=== PATIENT | female | born 1995 | race Caucasian/White ===

== ENCOUNTER 2017-01-21 17:29 | Emergency (ER) | payer BC ==
[~2017-01-21] VITALS: Ht 172.7 cm; Wt 72.6 kg
[2017-01-21 17:53] VITALS: BP_SYST 122
[2017-01-21] MEDS ORDERED: IBUPROFEN 800 MG TABLET PO ONE (19:45)
[2017-01-21 20:30] LABS: BILIRUBIN,URINE NEGATIVE (NEGATIVE); BLOOD, URINE NEGATIVE (NEGATIVE); CLARITY/URINE CLOUDY (CLEAR); COLOR,URINE YELLOW (YELLOW); GLUCOSE,URINE NEGATIVE (NEGATIVE); KETONES,URINE NEGATIVE (NEGATIVE); LEUKOCYTE ESTERASE ,URINE 1+ (NEGATIVE); NITRITE, URINE NEGATIVE (NEGATIVE); PH,URINE 6.5 (5.0-8.0); PROTEIN URINE NEGATIVE (NEGATIVE); UROBILINOGEN,URINE 0.2 (0.2-1.0)
[2017-01-21 20:49] LABS: BACTERIA,URINE MODERATE /HPF (None Seen); RBC,URINE NONE SEEN /HPF (0-3); URINE AMORPHOUS URATE 4+ /HPF (None Seen)
[2017-01-21 20:54] VITALS: BP_SYST 122
== END 2017-01-21 20:54 | disposition home or self-care (01) ==
LOC: SED 17:29
DX: N39.0 Urinary tract infection, site not specified (principal); F20.9 Schizophrenia, unspecified; F17.210 Nicotine dependence, cigarettes, uncomplicated; Z88.1 Allergy status to other antibiotic agents; Z71.6 Tobacco abuse counseling
CPT/HCPCS: 71010; 81000-TC; 81025; 87086; 93005; 99285

== ENCOUNTER 2018-03-02 17:37 | Emergency (ER) | payer BC ==
[~2018-03-02] VITALS: Ht 172.7 cm; Wt 90.7 kg
[2018-03-02 18:00] VITALS: BP_SYST 127
[2018-03-02] MEDS ORDERED: HYDROcodone/ACETAMIN 5-325 MG TAB (NORCO/ VICODIN) PO ONE (18:15)
[2018-03-02] MEDS ORDERED: DIPHENHYDRAMINE INJ 50 MG/ML VIAL IM ONE (18:15)
[2018-03-02] MEDS ORDERED: CLINDAMYCIN PHOSPHATE 300 MG/2 ML VIAL IM ONE (18:15)
[2018-03-02 18:50] VITALS: BP_SYST 120
== END 2018-03-02 18:50 | disposition home or self-care (01) ==
LOC: SED 17:37
DX: L01.00 Impetigo, unspecified (principal); F17.210 Nicotine dependence, cigarettes, uncomplicated; R03.0 Elevated blood-pressure reading, without diagnosis of hypertension; F20.9 Schizophrenia, unspecified; Z88.1 Allergy status to other antibiotic agents
CPT/HCPCS: 81025; 96372; 99284; J1200; J3490

== ENCOUNTER 2019-01-03 11:40 | Emergency (ER) | payer BC ==
[~2019-01-03] VITALS: Ht 172.7 cm; Wt 90.7 kg
--- NOTE | 2019-01-03 11:50 | NUR ---
Patient to ER bed 2 to gown for evaluation. Side rails up. Report given to Gustavo SHAFFER.
--- NOTE | 2019-01-03 11:55 | NUR ---
PT is accompanied by her girlfriend at bedside. PT advised that she had a seizure yesterday that lasted 2-3 mins. PT is [id number] and is not presenting any signs of acute distress. Rails padded and bed placed at lowest position.
--- NOTE | 2019-01-03 12:00 | NUR ---
ER at bedside examining patient.
[2019-01-03] MEDS ORDERED: NACL 0.9% 1,000 ML IV ONE (12:05)
[2019-01-03] MEDS ORDERED: TOPIRAMATE 25 MG TABLET(TOPAMAX) PO ONE (12:15)
[2019-01-03] MEDS ORDERED: NS 1000 ML IV.SOLN IV ONE (12:15)
[2019-01-03 12:36] LABS: BILIRUBIN,URINE NEGATIVE (NEGATIVE); BLOOD, URINE NEGATIVE (NEGATIVE); CLARITY/URINE CLEAR (CLEAR); COLOR,URINE YELLOW (YELLOW); GLUCOSE,URINE NEGATIVE (NEGATIVE); KETONES,URINE NEGATIVE (NEGATIVE); LEUKOCYTE ESTERASE ,URINE TRACE (NEGATIVE); NITRITE, URINE NEGATIVE (NEGATIVE); PROTEIN URINE NEGATIVE (NEGATIVE)
--- NOTE | 2019-01-03 12:45 | NUR ---
Patient transported to radiology via gurney, accompanied by rad staff and RN.
[2019-01-03 12:54] LABS: BASOPHILS % (AUTO) 0.4 % (0.0-2.0); EOSINOPHILS # (AUTO) 0.2 K/uL (0.0-0.4); EOSINOPHILS % (AUTO) 1.8 % (0.0-4.0); HEMOGLOBIN 14.8 g/dL (12.0-16.0); LYMPHOCYTES # (AUTO) 1.9 K/uL (1.0-5.5); LYMPHOCYTES % (AUTO) 16.3 % (20.5-51.5); MEAN CORPUSCULAR HEMOGLOBIN 30 pg (27-31); MEAN CORPUSCULAR HGB CONC 34 % (32-36); MEAN CORPUSCULAR VOLUME 89 fL (79.0-98.0); MONOCYTES # (AUTO) 0.8 K/uL (0.0-1.0); MONOCYTES % (AUTO) 7.3 % (1.7-9.3); NEUTROPHILS # (AUTO) 8.6 K/uL (1.8-7.7); NEUTROPHILS % (AUTO) 74.2 % (40.0-70.0); PLATELET COUNT (AUTO) 330 K/uL (130-430); RED BLOOD CELL COUNT(AUTO) 4.93 MIL/uL (4.2-6.2); RED CELL DISTRIBUTION WIDTH 13.3 % (9.0-15.0); WHITE BLOOD COUNT (AUTO) 11.5 K/uL (4.8-10.8)
[2019-01-03 12:54] LABS: BARBITURATE, URINE NEGATIVE (NEG <=200); BENZODIAZEPINE, URINE NEGATIVE (NEG <=150); CANNABINOID, URINE NEGATIVE (NEG <=50); COCAINE, URINE NEGATIVE (NEG <=150); METHAMPHETAMINES SCREEN,URINE NEGATIVE (NEG <=500); OPIATE, URINE NEGATIVE (NEG <=100); PHENCYCLIDINE SCREEN,URINE NEGATIVE (NEG <=25); UR TRICYCLIC ANTIDEPRESSANTS NEGATIVE (NEG <=300); URINE AMPHETAMINE NEGATIVE (NEG <=500); URINE METHADONE NEGATIVE (NEG <=200); URINE OXYCODONE SCREEN NEGATIVE (NEG <=100); URINE PROPOXYPHENE SCREEN NEGATIVE (NEG <=300)
[2019-01-03 13:10] LABS: BACTERIA,URINE FEW /HPF (None Seen); RBC,URINE 0-3 /HPF (0-3); WBC,URINE 0-3 /HPF (0-3)
[2019-01-03 13:11] LABS: MUCUS,URINE 1+ /LPF (None Seen); URINE AMORPHOUS PHOSPHATES 2+ /HPF (None Seen)
--- NOTE | 2019-01-03 13:30 | NUR ---
Pt on gurcady with girlfriend at bedside. PT advised she is doing okay. PT not presenting any signs of acute distress.
[2019-01-03 13:41] LABS: PROTHROMBIN TIME 9.9 SECS (9.5-12.5)
[2019-01-03 13:56] LABS: ANION GAP 7 (5-15); CALCIUM 8.9 mg/dL (8.4-11.0); CHLORIDE 107 mmol/L (98-107); CREATININE 0.75 mg/dL (0.55-1.30); GLUCOSE 107 mg/dL (70-99); POTASSIUM 3.8 mmol/L (3.5-5.1); SODIUM SERUM 137 mmol/L (136-145); UREA NITROGEN, BLOOD 10 mg/dL (8-21)
[2019-01-03 13:59] LABS: GFR AFRICAN AMERICAN 124 mL/min (>90)
[2019-01-03 14:04] LABS: ALANINE AMINOTRANSFERASE 22 U/L (12-78); ALBUMIN 3.5 g/dL (3.4-4.8); AMYLASE 47 U/L (0-100); ASPARTATE AMINOTRANSFERASE 15 U/L (10-37); LIPASE 88 U/L (73-393); TOTAL BILIRUBIN 0.3 mg/dL (0.0-1.0)
[2019-01-03 14:05] LABS: ALCOHOL, BLOOD < 3 mg/dL (<10)
[2019-01-03 14:33] VITALS: BP_SYST 107
== END 2019-01-03 13:30 | disposition home or self-care (01) ==
LOC: SED 11:40
DX: R56.9 Unspecified convulsions (principal); F20.9 Schizophrenia, unspecified; Z88.1 Allergy status to other antibiotic agents; Z86.59 Personal history of other mental and behavioral disorders
CPT/HCPCS: 36415; 70450; 71045; 80053; 80307; 81000; 82150; 83605; 83690; 85025; 85610; 85730; 87040; 99284; G0482; J7030

== ENCOUNTER 2023-12-15 11:25 | Emergency (ER) | payer BC, OTHER ==
[~2023-12-15] VITALS: Ht 172.7 cm; Wt 111.1 kg
[2023-12-15 11:43] VITALS: BP_SYST 114; PULSE 73; RESP 18; TEMP 97.4; O2SAT 97
[2023-12-15] MEDS ORDERED: CLOT45CR33 TP (12:08)
[2023-12-15 12:16] VITALS: BP_SYST 114; PULSE 73; RESP 18; TEMP 97.4; O2SAT 97
== END 2023-12-15 12:15 | disposition home or self-care (01) ==
LOC: SED 11:25
DX: B35.4 Tinea corporis (principal); R21 Rash and other nonspecific skin eruption; Z88.1 Allergy status to other antibiotic agents; Z79.899 Other long term (current) drug therapy
CPT/HCPCS: 99282

== ENCOUNTER 2024-01-24 16:44 | Emergency (ER) | payer OTHER ==
[~2024-01-24] VITALS: Ht 172.7 cm; Wt 102.1 kg
[~2024-01-24 16:44] MED LIST: CLOT45CR33 TP
[2024-01-24 16:55] VITALS: BP_SYST 130; PULSE 67; RESP 16; TEMP 97.8; O2SAT 97
[2024-01-24 17:21] LABS: BASOPHILS # (AUTO) 0.1 K/uL (0.0-0.2); BASOPHILS % (AUTO) 0.6 % (0.0-2.0); EOSINOPHILS # (AUTO) 0.1 K/uL (0.0-0.4); EOSINOPHILS % (AUTO) 1.1 % (0.0-4.0); HEMATOCRIT 39.6 % (36-48); HEMOGLOBIN 13.7 g/dL (12.0-16.0); LYMPHOCYTES # (AUTO) 2.7 K/uL (1.0-5.5); LYMPHOCYTES % (AUTO) 21.8 % (20.5-51.5); MEAN CORPUSCULAR HEMOGLOBIN 29 pg (27-31); MEAN CORPUSCULAR HGB CONC 35 % (32-36); MEAN CORPUSCULAR VOLUME 83 fL (79.0-98.0); MONOCYTES # (AUTO) 1.2 K/uL (0.0-1.0); NEUTROPHILS # (AUTO) 8.1 K/uL (1.8-7.7); NEUTROPHILS % (AUTO) 66.5 % (40.0-70.0); PLATELET COUNT (AUTO) 354 K/uL (130-430); RED BLOOD CELL COUNT(AUTO) 4.75 MIL/uL (4.2-6.2); RED CELL DISTRIBUTION WIDTH 19.4 % (9.0-15.0); WHITE BLOOD COUNT (AUTO) 12.2 K/uL (4.8-10.8)
[2024-01-24 17:34] LABS: INR 1.1 (0.8-1.2); PROTHROMBIN TIME 10.9 SECS (9.5-12.5)
[2024-01-24 17:51] LABS: ALBUMIN 3.6 g/dL (3.4-4.8); BILIRUBIN,DIRECT 0.1 mg/dL (0.0-0.3); CALCIUM 9.1 mg/dL (8.4-11.0); CREATININE 0.62 mg/dL (0.55-1.30); POTASSIUM 3.5 mmol/L (3.5-5.1); TOTAL BILIRUBIN 0.5 mg/dL (0.0-1.0); TOTAL PROTEIN, SERUM 8.1 g/dL (6.4-8.3)
== END 2024-01-24 17:55 | disposition home or self-care (01) ==
LOC: SED 16:44
DX: R04.0 Epistaxis (principal); K92.0 Hematemesis; R10.13 Epigastric pain; F20.9 Schizophrenia, unspecified; Z88.1 Allergy status to other antibiotic agents; Z79.899 Other long term (current) drug therapy
CPT/HCPCS: 36415; 80048; 80076; 85025; 85610; 85730; 99283

== ENCOUNTER 2024-02-19 18:41 | Emergency (ER) | payer OTHER ==
[~2024-02-19] VITALS: Ht 172.7 cm; Wt 104.3 kg
[2024-02-19 18:45] VITALS: BP_SYST 125; PULSE 76; RESP 18; TEMP 97.2; O2SAT 99
[2024-02-19] MEDS: ONDANSETRON 4 MG ODT TAB PO ONE (19:28)
[2024-02-19] MEDS: IBUPROFEN 600 MG TABLET PO ONE (19:29)
[2024-02-19] MEDS: FLUORESCEIN SODIUM 1 MG OPHTHALMIC STRIP OP ONE (20:31)
[2024-02-19] MEDS: TETRACAINE HCL/PF 0.5% OPHTHALMIC DROPS 4 ML OP ONE (20:32)
[2024-02-19] MEDS ORDERED: SULF3.5O14 OP (20:36)
[2024-02-19 20:47] VITALS: BP_SYST 106; PULSE 60; RESP 17; TEMP 97.5; O2SAT 97
== END 2024-02-19 20:47 | disposition home or self-care (01) ==
LOC: SED 18:41
DX: S05.02XA Injury of conjunctiva and corneal abrasion without foreign body, left eye, initial encounter (principal); F20.9 Schizophrenia, unspecified; Z88.1 Allergy status to other antibiotic agents; Z79.899 Other long term (current) drug therapy; Z79.2 Long term (current) use of antibiotics; X58.XXXA Exposure to other specified factors, initial encounter; Y93.89 Activity, other specified; Y92.89 Other specified places as the place of occurrence of the external cause; Y99.8 Other external cause status
CPT/HCPCS: 99284; Q0162

== ENCOUNTER 2024-04-10 17:55 | Emergency (ER) | payer OTHER ==
[~2024-04-10] VITALS: Ht 172.7 cm; Wt 105.2 kg
[~2024-04-10 17:55] MED LIST changes: +SULF3.5O14 OP
[2024-04-10 18:00] VITALS: BP_SYST 118; PULSE 64; RESP 18; TEMP 97; O2SAT 97
== END 2024-04-10 19:06 | disposition left against medical advice (07) ==
LOC: SED 17:55
DX: S60.862A Insect bite (nonvenomous) of left wrist, initial encounter (principal); Z53.21 Procedure and treatment not carried out due to patient leaving prior to being seen by health care provider; W57.XXXA Bitten or stung by nonvenomous insect and other nonvenomous arthropods, initial encounter; Y93.89 Activity, other specified; Y92.89 Other specified places as the place of occurrence of the external cause; Y99.8 Other external cause status